=== PATIENT | female | born 1955 | race Caucasian/White ===

== ENCOUNTER 2023-10-14 07:55 | Emergency (ER) | payer MEDICARE, OTHER ==
[2023-10-14] MEDS ORDERED: Naloxone 2 MG/2 ML Syringe IVPUSH PRN (08:13)
[2023-10-14] MEDS: Ondansetron 4 MG Tab.DIS PO ONE (08:19)
[2023-10-14] MEDS: HYDROmorphone 0.5 MG/0.5 ML Syringe SUBCUT ONE (08:19)
[2023-10-14 08:33] LABS: BASOPHILS PERCENT AUTO 0.6 % (0.0-1.0); EOSINOPHILS PERCENT AUTO 2.1 % (1.0-3.0); HEMATOCRIT 45.4 % (37.0-47.0); HEMOGLOBIN 15.3 g/dL (12.0-16.0); MEAN CORPUSCULAR HEMOGLOBIN 31.7 pg (27.0-34.0); MEAN CORPUSCULAR HGB CONC 33.7 g/dL (33.0-35.0); MONOCYTES PERCENT AUTO 8.4 % (2-8); NEUTROPHILS PERCENT AUTO 62.9 % (42.2-75.2); PLATELET COUNT,PLT 241 10^3/uL (150-450); RED BLOOD CELL COUNT 4.83 10^6/uL (4.2-5.4); WHITE BLOOD CELL COUNT,WBC 6.2 10^3/uL (5.0-10.0)
[2023-10-14 08:53] LABS: A/G RATIO 1.2; ALBUMIN 3.8 g/dL (3.4-5.0); ANION GAP 9.4 mEq/L (7-13); BILIRUBIN TOTAL 0.6 mg/dL (0.2-1.0); BUN/CREATININE RATIO 22.2 (No establ ref range); CREATININE 0.9 mg/dL (0.55-1.02); EST CRCL DRUG DOSING (CG) 56.78 mL/min; POTASSIUM,K 4.4 mmol/L (3.5-5.1)
[2023-10-14 09:29] LABS: APPEARANCE,URINE SLIGHTLY CLOUDY (CLEAR); BILIRUBIN,URINE NEGATIVE (NEGATIVE); COLOR,URINE DARK YELLOW (YELLOW); GLUCOSE,URINE NEGATIVE (NEGATIVE); KETONES,URINE NEGATIVE (NEGATIVE); LEUKOCYTE ESTERASE,URINE SMALL (NEGATIVE); NITRITE,URINE POSITIVE (NEGATIVE); OCCULT BLOOD,URINE TRACE-INTACT (NEGATIVE); PROTEIN,URINE NEGATIVE (NEGATIVE)
[2023-10-14] MEDS: Lidocaine 5% 700 MG Patch TOP ONE (09:34)
[2023-10-14 09:59] LABS: BACTERIA,URINE MANY /HPF (0-FEW/HPF)
[2023-10-14 10:00] LABS: EPITHELIAL CELLS,URINE FEW /HPF (NOT SEEN); RBC,URINE 0-5 /HPF (0-5); WBC,URINE 30-40 /HPF (0-5/HPF)
== END 2023-10-14 10:17 | disposition home or self-care (01) ==
LOC: DL.ED 07:55
DX: M43.06 Spondylolysis, lumbar region (principal); M54.41 Lumbago with sciatica, right side; M54.42 Lumbago with sciatica, left side; M46.1 Sacroiliitis, not elsewhere classified
CPT/HCPCS: 36415; 72100; 74018; 76705; 80053; 81001; 85025; 87086; 96372; 99284; A9270; J1170; 87088; 87186